=== PATIENT | male | born 1935 | race Caucasian/White ===

== ENCOUNTER 2017-10-02 00:30 | Inpatient (IN) | payer MEDICARE, OTHER ==
[~2017-10-02 00:30] MED LIST: ALPR0.25 PO; AMLO5TAB2 PO; HALO0.5T PO; HYDR12.57 PO; NAPR500T2 PO; ZOLP10TA3 PO
[2017-10-02] MEDS ORDERED: IOHEXOL 350 MG/ML 10 ML VIAL (for RAD DIAG) IVCONTRAST ONE (00:41)
[2017-10-02] MEDS ORDERED: MAGNESIUM HYDROXIDE SUSP 30 ML CUP PO PRN (01:15)
[2017-10-02] MEDS ORDERED: LACTULOSE SYRUP 20 GM/30 ML CUP PO PRN (01:15)
[2017-10-02] MEDS ORDERED: ONDANSETRON ODT 4 MG TAB PO PRN (01:15)
[2017-10-02] MEDS ORDERED: BISACODYL 10 MG SUPP RECTAL PRN (01:15)
[2017-10-02] MEDS ORDERED: SODIUM CHLORIDE 0.9% FLUSH 10 ML FLUSH IV FLUSH PRN (01:15)
[2017-10-02] MEDS ORDERED: SENNOSIDES 8.6 MG TAB PO PRN (01:15)
[2017-10-02] MEDS ORDERED: NALOXONE HCL 0.4 MG/ML AMP IV PUSH PRN (01:15)
[2017-10-02] MEDS ORDERED: TRIMETHOBENZAMIDE INJ 200 MG/2 ML VIAL IM PRN (01:15)
[2017-10-02] MEDS ORDERED: ACETAMINOPHEN 325 MG TAB PO PRN (01:15)
[2017-10-02] MEDS: SODIUM CHLOR 0.9% 1000 ML INJ 1,000 ML IV SCH ×2 (01:43→15:23)
--- NOTE | 2017-10-02 03:19 | RADRPT ---
EXAM DATE/TIME: 10/02/2017 02:44 [place] COMPARISON: No previous studies available for comparison. INDICATIONS : Shortness of breath with elevated D-Dimer. IV CONTRAST: 70 cc Omnipaque 350 (iohexol) IV RADIATION DOSE: 8.96 CTDIvol (mGy) MEDICAL HISTORY : Dementia. Cardiovascular disease Hypertension. SURGICAL HISTORY : None. ENCOUNTER: Initial ACUITY: 1 day PAIN SCALE: 0/10 LOCATION: chest TECHNIQUE: Volumetric scanning of the chest was performed using a pulmonary embolism protocol MIP images were re constructed. Using automated exposure control and adjustment of the mA and/or kV according to patien t size, radiation dose was kept as low as reasonably achievable to obtain optimal diagnostic quality images. DICOM format image data is available electronically for review and comparison. Follow-up recommendations for detected pulmonary nodules are based at a minimum on nodule size and pa tient risk factors according to Fleischner Society Guidelines. FINDINGS: No filling defects to suggest pulmonary embolus. Dependent atelectasis in the lungs. Mild coronary ca lcifications. No pleural or pericardial effusion. No adenopathy. No acute findings in the upper abdom en. Mild scoliosis. CONCLUSION: 1. Negative for pulmonary embolus. Henrry Rossi MD on October 02, 2017 at 3:14 Board Certified Radiologist. This report was verified electronically.
[2017-10-02 03:55] VITALS: BP 153/83; PULSE 93; RESP 16; TEMP 97.7; O2SAT 98
[2017-10-02] MEDS: ALPRAZolam 0.25 MG TAB PO PRN (04:21)
[2017-10-02] MEDS: ENOXAPARIN SODIUM 40 MG/0.4 ML SYRINGE SQ SCH (04:22)
[2017-10-02 07:52] VITALS: BP 137/76; PULSE 95; RESP 18; TEMP 97.5; O2SAT 98
[2017-10-02] MEDS: amLODIPine BESYLATE 5 MG TAB PO SCH (08:39)
[2017-10-02] MEDS: SODIUM CHLORIDE 0.9% FLUSH 10 ML FLUSH IV FLUSH SCH ×2 (08:39→21:00)
[2017-10-02] MEDS: HALOPERIDOL 0.5 MG TAB PO SCH ×2 (08:39→20:30)
--- NOTE | 2017-10-02 08:51 | HHI.HP ---
HPI Service [facility] Primary Care Physician Tano Hewitt MD Admission Diagnosis Diagnoses: (1) Acute renal injury (2) Dementia (3) Hypertension (4) Urinary tract infection (5) Metabolic encephalopathy Chief Complaint: Altered mental status change Travel History International Travel<30 Days: No Contact w/Intl Traveler <30 Da: No Traveled to Known Affected Are: No History of Present Illness 82-year-old speaking man transfer to [facility] ED for evaluation of altered mental status change. Although patient is alert oriented, however it is difficult to obtain any history from him as patient is a poor history; therefore history is obtained from chart review below; "This is a 82-year-old male presents here for evaluation of generalized weakness and malodorous urine for the last few days. Family member at the bedside states that he has been doing okay and he does not have any medical problems but recently has been feeling weak and coughing and his urine started to smell bad. There is also subjective fever but he did not check his temperature at home. There is no nausea or vomiting or diarrhea. Patient has no complaints and keeps saying that "I feel good". Nephew at bedside states that his severe lesion is probably 94 but back in the 40s they did not used to have a certificate in [place] and he had to go to the doctor to be checked and be assigned a date." On admission, patient was afebrile with temperature of 98.2, pulse 86, respiratory rate 16, BP 142/66 and satting at 99% on room air. Chest x-ray did not reveal any cardiopulmonary disease and secondary to elevated d-dimer patient has CTA which was negative for PE. Patient has a slight bump on his BUN which on March 18, 2017 was 23 and is now 32. He also had abnormal UA for which she was started on IV antibiotic. Review of Systems ROS Limitations: Poor Historian Except as stated in HPI: all other systems reviewed are Neg Past Family Social History Past Medical History Anxiety: Yes Cardiovascular Problems: Yes High Cholesterol: Yes Hypertension: Yes Past Surgical History HERNIA REPAIR Reported Medications Keflex (Cephalexin) 500 Mg Cap 500 Mg PO Q12H 10 Days Reported Alprazolam 0.25 Mg Tab 0.25 Mg PO Q8H PRN Donepezil 5 Mg Tab 5 Mg PO HS Haloperidol 0.5 Mg Tab 0.5 Mg PO BID Trazodone (Trazodone HCl) 50 Mg Tab 50 Mg PO HS Amlodipine (Amlodipine Besylate) 5 Mg Tab 5 Mg PO DAILY Allergies: Coded Allergies: No Known Allergies (Unverified Allergy, Unknown, 10/02/17) Family History Due to patient's advanced age, family history not relevant for this case Social History Alcohol Use: No Tobacco Use: No Substance Use: Yes Physical Exam Vital Signs Vital Signs Date Time Temp Pulse Resp B/P (MAP) Pulse Ox O2 Delivery O2 Flow Rate FiO2 10/02/17 07:52 97.5 95 18 137/76 (96) 98 10/02/17 03:55 97.7 93 16 153/83 (106) 98 Physical Exam GENERAL: This is a well-nourished, well-developed patient, in no apparent distress. SKIN: No rashes, ecchymoses or lesions. Cool and dry. HEAD: Atraumatic. Normocephalic. No temporal or scalp tenderness. EYES: Pupils equal round and reactive. Extraocular motions intact. No scleral icterus. No injection or drainage. ENT: Nose without bleeding, purulent drainage or septal hematoma. Throat without erythema, tonsillar hypertrophy or exudate. Uvula midline. Airway patent. NECK: Trachea midline. No JVD or lymphadenopathy. Supple, nontender, no meningeal signs. CARDIOVASCULAR: Regular rate and rhythm without murmurs, gallops, or rubs. RESPIRATORY: Clear to auscultation. Breath sounds equal bilaterally. No wheezes , rales, or rhonchi. GASTROINTESTINAL: Abdomen soft, non-tender, nondistended. No hepato-splenomegaly , or palpable masses. No guarding. MUSCULOSKELETAL: Extremities without clubbing, cyanosis, or edema. No joint tenderness, effusion, or edema noted. No calf tenderness. Negative Homans sign bilaterally. NEUROLOGICAL: Awake and alert. Cranial nerves II through XII intact. Motor and sensory grossly within normal limits. Five out of 5 muscle strength in all muscle groups. Normal speech. Imaging Last Impressions CT Angiography 10/02/17 0000 Signed Impressions: Service Date/Time: Monday, October 02, 2017 02:44 - CONCLUSION: 1. Negative for pulmonary embolus. Henrry Rossi MD Septic Shock Reassessment Septic shock perfusion: reassessment completed Caprini VTE Risk Assessment Caprini VTE Risk Assessment: Mod/High Risk (score >= 2) Caprini Risk Assessment Model Point Value = 1 Point Value = 2 Point Value = 3 Point Value = 5 Age 41-60 Minor surgery BMI > 25 kg/m2 Swollen legs Varicose veins or History of unexplained or recurrent spontaneous Oral contraceptives or hormone replacement Sepsis (< 1 month) Serious lung disease, including pneumonia (< 1 month) Abnormal pulmonary function Acute myocardial infarction Congestive heart failure (< 1 month) History of inflammatory bowel disease Medical patient at bed rest Age 61-74 Arthroscopic surgery Major open surgery (> 45 min) Laparoscopic surgery (> 45 min) Malignancy Confined to bed (> 72 hours) Immobilizing plaster cast Central venous access Age >= 75 History of VTE Family history of VTE Factor V Leiden Prothrombin [id number] Lupus anticoagulant Anticardiolipin antibodies Elevated serum homocysteine Heparin-induced thrombocytopenia Other congenital or acquired thrombophilia Stroke (< 1 month) Elective arthroplasty Hip, pelvis, or leg fracture Acute spinal cord injury (< 1 month) Prophylaxis Regimen Total Risk Factor Score Risk Level Prophylaxis Regimen 0-1 Low Early ambulation 2 Moderate Order ONE of the following: *Sequential Compression Device (SCD) *Heparin 5000 units SQ BID 3-4 Higher Order ONE of the following medications: *Heparin 5000 units SQ TID *Enoxaparin/Lovenox 40 mg SQ daily (WT < 150 kg, CrCl > 30 mL/min) *Enoxaparin/Lovenox 30 mg SQ daily (WT < 150 kg, CrCl > 10-29 mL/min) *Enoxaparin/Lovenox 30 mg SQ BID (WT < 150 kg, CrCl > 30 mL/min) AND/OR *Sequential Compression Device (SCD) 5 or more Highest Order ONE of the following medications: *Heparin 5000 units SQ TID (Preferred with Epidurals) *Enoxaparin/Lovenox 40 mg SQ daily (WT < 150 kg, CrCl > 30 mL/min) *Enoxaparin/Lovenox 30 mg SQ daily (WT < 150 kg, CrCl > 10-29 mL/min) *Enoxaparin/Lovenox 30 mg SQ BID (WT < 150 kg, CrCl > 30 mL/min) AND *Sequential Compression Device (SCD) Assessment and Plan Problem List: (1) Metabolic encephalopathy ICD Code: G93.41 - Metabolic encephalopathy (2) Urinary tract infection ICD Code: N39.0 - Urinary tract infection, site not specified (3) Hypertension ICD Code: I10 - Essential (primary) hypertension (4) Acute renal injury ICD Code: N17.9 - Acute kidney failure, unspecified (5) Dementia ICD Code: F03.90 - Unspecified dementia without behavioral disturbance Assessment and Plan 82-year-old man with Metabolic encephalopathy Likely secondary to UTI versus other Chest x-ray noted and reviewed by me without any cardiopulmonary disease Check ammonia level CTA negative for PE Urinary tract infection Currently on Rocephin pending cultures report Acute renal injury BUN/creatinine 23/0.9 (03/18/17) and now on admission 32/1.20 Prerenal likely secondary to dehydration Gentle IV fluid hydration and monitor BUN and creatinine Normochromic normocytic anemia Likely of chronic disease and appears stable However will check Hemoccult Also check iron study along with ferritin and treat accordingly History of dementia behavior disturbances Currently on Haldol Not on Namenda Outpatient follow-up Hypertension Currently normotensive on Norvasc DVT prophylaxis: Bilateral SCDs Lester Reza MD October 02, 2017 08:51
[2017-10-02] MEDS ORDERED: RESP: ALBUTEROL 2.5 MG/IPRATROPIUM 0.5 MG NEB (PRN) NEB (10:00)
[2017-10-02 11:46] VITALS: BP 118/72; PULSE 90; RESP 18; TEMP 97.5; O2SAT 98
[2017-10-02 16:01] VITALS: BP 125/72; PULSE 88; RESP 18; TEMP 97.7; O2SAT 97
[2017-10-02 19:50] VITALS: BP 143/76; PULSE 89; RESP 18; TEMP 98; O2SAT 98
[2017-10-02] MEDS: cefTRIAXone INJ 1,000 MG in SODIUM CHLORIDE 0.9% INJ 100 ML IV SCH (20:30)
[2017-10-02 23:34] LABS: IRON (FE) 14 MCG/DL (65-175)
[2017-10-02 23:38] LABS: FERRITIN 116 NG/ML (26-388); TOTAL IRON BINDING CAPACITY 279 MCG/DL (250-450)
[2017-10-03 00:35] VITALS: BP 135/74; PULSE 84; RESP 16; TEMP 98.5; O2SAT 98
[2017-10-03 04:11] VITALS: BP 150/86; PULSE 89; RESP 16; TEMP 97.4; O2SAT 98
[2017-10-03] MEDS: ENOXAPARIN SODIUM 40 MG/0.4 ML SYRINGE SQ SCH (05:16)
[2017-10-03] MEDS: SODIUM CHLOR 0.9% 1000 ML INJ 1,000 ML IV SCH (05:16)
[2017-10-03] MEDS: ALPRAZolam 0.25 MG TAB PO PRN (06:10)
[2017-10-03 07:02] LABS: AUTOMATED NEUTROPHIL # 3.1 TH/MM3 (1.8-7.7); BASOPHIL % 0.7 % (0.0-2.0); EOSINOPHIL # 0.1 TH/MM3 (0-0.4); EOSINOPHIL % 1.9 % (0.0-4.0); HEMATOCRIT 38.5 % (39.0-51.0); LYMPH % 23.9 % (9.0-44.0); LYMPHOCYTE # 1.2 TH/MM3 (1.0-4.8); MEAN CELL VOLUME 95.3 FL (80.0-100.0); MEAN CORPUSCULAR HEMOGLOBIN 32.2 PG (27.0-34.0); MEAN CORPUSCULAR HGB CONC 33.8 % (32.0-36.0); MEAN PLATELET VOLUME 8.6 FL (7.0-11.0); MONO % 11.8 % (0.0-8.0); MONOCYTE # 0.6 TH/MM3 (0-0.9); NEUT % 61.7 % (16.0-70.0); PLATELET COUNT 200 TH/MM3 (150-450); RED BLOOD COUNT 4.03 MIL/MM3 (4.50-5.90); RED CELL DISTRIBUTION WIDTH 13.3 % (11.6-17.2)
[2017-10-03 07:31] LABS: BICARBONATE 24.8 MEQ/L (21.0-32.0); CALCIUM 9.2 MG/DL (8.5-10.1); CREATININE 0.64 MG/DL (0.60-1.30)
[2017-10-03 08:01] VITALS: BP 160/89; PULSE 85; RESP 18; TEMP 97.9; O2SAT 100
[2017-10-03] MEDS: SODIUM CHLORIDE 0.9% FLUSH 10 ML FLUSH IV FLUSH SCH ×2 (08:16→21:28)
[2017-10-03] MEDS: HALOPERIDOL 0.5 MG TAB PO SCH ×2 (08:19→21:28)
[2017-10-03] MEDS: amLODIPine BESYLATE 5 MG TAB PO SCH (08:19)
--- NOTE | 2017-10-03 09:38 | HHI.PR ---
Subjective Remarks No acute complaints today. Dehydration is improving. Confusion remains present. There is likely some degree of confusion at baseline but patient is reportedly decompensated compared to baseline. Objective Vital Signs Date Time Temp Pulse Resp B/P (MAP) Pulse Ox O2 Delivery O2 Flow Rate FiO2 10/03/17 08:01 97.9 85 18 160/89 (112) 100 10/03/17 04:11 97.4 89 16 150/86 (107) 98 10/03/17 00:35 98.5 84 16 135/74 (94) 98 10/02/17 19:50 98.0 89 18 143/76 (98) 98 10/02/17 16:01 97.7 88 18 125/72 (89) 97 10/02/17 11:46 97.5 90 18 118/72 (87) 98 I/O 10/02/17 10/02/17 10/02/17 10/03/17 10/03/17 10/03/17 07:00 15:00 23:00 07:00 15:00 23:00 Intake Total 480 ml Balance 480 ml Intake Oral 480 ml # Voids 8 1 Result Diagram: 10/03/17 0610 10/03/17 0610 Objective Remarks GENERAL: NAD, A&Ox1 HEAD: Normocephalic. NECK: Supple, trachea midline. No lymphadenopathy. EYES: No scleral icterus. No injection or drainage. CARDIOVASCULAR: Regular rate and rhythm without murmurs, gallops, or rubs. RESPIRATORY: Breath sounds equal bilaterally. No accessory muscle use. GASTROINTESTINAL: Abdomen soft, non-tender, nondistended. MUSCULOSKELETAL: No cyanosis, or edema. SKIN: Warm and dry. NEURO: No focal neurological deficitis. Generalized weakness. A/P Problem List: (1) Encephalopathy ICD Code: G93.40 - Encephalopathy, unspecified (2) Dementia ICD Code: F03.90 - Unspecified dementia without behavioral disturbance (3) Urinary tract infection ICD Code: N39.0 - Urinary tract infection, site not specified (4) Hypertension ICD Code: I10 - Essential (primary) hypertension (5) Metabolic encephalopathy ICD Code: G93.41 - Metabolic encephalopathy Assessment and Plan 82-year-old man admitted secondary to weakness and confusion Metabolic encephalopathy secondary to UTI Continue to treat urinary tract infection Ammonia levels within normal limits Negative imaging Urinary tract infection Continue Rocephin Follow cultures Acute renal injury Improving Follow renal function Avoid nephrotoxins Discontinue IV hydration ion and monitor BUN and creatinine Normochromic normocytic anemia Resolved Iron level is slightly low Iron supplementation started Stool studies still pending Follow as an outpatient History of dementia behavior disturbances Continue Haldol Hypertension Continue Norvasc DVT prophylaxis Bilateral SCDs Discharge planning Patient is likely in need of a care home facility at time of discharge Terry Romero MD October 03, 2017 09:38
[2017-10-03] MEDS ORDERED: FERROUS SULFATE 325 MG (65 MG ELEMENTAL IRON) TAB PO ONE (09:45)
[2017-10-03 12:25] VITALS: BP 132/70; PULSE 82; RESP 18; TEMP 97.4; O2SAT 99
[2017-10-03 20:00] VITALS: BP 134/60; PULSE 105; RESP 16; TEMP 98; O2SAT 96
[2017-10-03] MEDS: cefTRIAXone INJ 1,000 MG in SODIUM CHLORIDE 0.9% INJ 100 ML IV SCH (21:25)
[2017-10-04] VITALS: BP 138/63; PULSE 73; RESP 16; TEMP 97.6; O2SAT 99
[2017-10-04 04:00] VITALS: BP 124/69; PULSE 79; RESP 14; TEMP 97.6; O2SAT 97
[2017-10-04] MEDS: ENOXAPARIN SODIUM 40 MG/0.4 ML SYRINGE SQ SCH (06:14)
[2017-10-04 08:00] VITALS: BP 140/77; PULSE 86; RESP 19; TEMP 97.2; O2SAT 98
[2017-10-04] MEDS: FERROUS SULFATE 325 MG (65 MG ELEMENTAL IRON) TAB PO SCH (08:08)
[2017-10-04] MEDS: HALOPERIDOL 0.5 MG TAB PO SCH ×2 (08:08→22:40)
[2017-10-04] MEDS: SODIUM CHLORIDE 0.9% FLUSH 10 ML FLUSH IV FLUSH SCH ×2 (08:08→22:40)
[2017-10-04] MEDS: amLODIPine BESYLATE 5 MG TAB PO SCH (08:08)
[2017-10-04 08:49] LABS: AUTOMATED NEUTROPHIL # 2.9 TH/MM3 (1.8-7.7); BASOPHIL # 0.1 TH/MM3 (0-0.2); BASOPHIL % 1.2 % (0.0-2.0); EOSINOPHIL # 0.1 TH/MM3 (0-0.4); EOSINOPHIL % 1.8 % (0.0-4.0); HEMATOCRIT 41.1 % (39.0-51.0); HEMOGLOBIN 13.7 GM/DL (13.0-17.0); LYMPH % 24.9 % (9.0-44.0); LYMPHOCYTE # 1.1 TH/MM3 (1.0-4.8); MEAN CORPUSCULAR HEMOGLOBIN 32.1 PG (27.0-34.0); MEAN CORPUSCULAR HGB CONC 33.4 % (32.0-36.0); MEAN PLATELET VOLUME 8.3 FL (7.0-11.0); MONO % 9.4 % (0.0-8.0); MONOCYTE # 0.4 TH/MM3 (0-0.9); NEUT % 62.7 % (16.0-70.0); PLATELET COUNT 224 TH/MM3 (150-450); RED BLOOD COUNT 4.28 MIL/MM3 (4.50-5.90); RED CELL DISTRIBUTION WIDTH 13.2 % (11.6-17.2); WHITE BLOOD COUNT 4.6 TH/MM3 (4.0-11.0)
[2017-10-04 09:15] LABS: ALBUMIN 3.5 GM/DL (3.4-5.0); AST (GOT) 17 U/L (15-37); BICARBONATE 25.1 MEQ/L (21.0-32.0); BLOOD UREA NITROGEN 24 MG/DL (7-18); CALCIUM 9.5 MG/DL (8.5-10.1); CHLORIDE 102 MEQ/L (98-107); CREATININE 0.96 MG/DL (0.60-1.30); GLOMERULAR FILTRATION RATE 75 ML/MIN (>89); GLUCOSE,RANDOM 89 MG/DL (74-106); SODIUM (NA) 138 MEQ/L (136-145)
[2017-10-04 09:16] LABS: ALT (GPT) 22 U/L (12-78)
[2017-10-04 09:18] LABS: ALKALINE PHOSPHATASE 77 U/L (45-117); TOTAL BILIRUBIN ADULT 0.3 MG/DL (0.2-1.0); TOTAL PROTEIN 8.2 GM/DL (6.4-8.2)
[2017-10-04 12:00] VITALS: BP 147/86; PULSE 91; RESP 19; TEMP 98; O2SAT 98
--- NOTE | 2017-10-04 13:14 | HHI.PR ---
Subjective Remarks Patient seen this morning using sales person over the phone. Patient has no complaints. Says he is feeling all right. Denies any pain. Denies any dysuria. Disoriented but pleasant. Objective Vital Signs Date Time Temp Pulse Resp B/P (MAP) Pulse Ox O2 Delivery O2 Flow Rate FiO2 10/04/17 12:00 98.0 91 19 147/86 (106) 98 10/04/17 08:00 97.2 86 19 140/77 (98) 98 10/04/17 04:00 97.6 79 14 124/69 (87) 97 10/04/17 00:00 97.6 73 16 138/63 (88) 99 10/03/17 20:00 98.0 105 16 134/60 (84) 96 I/O 10/03/17 10/03/17 10/03/17 10/04/17 10/04/17 10/04/17 06:59 14:59 22:59 06:59 14:59 22:59 Intake Total 450 ml 120 ml Balance 450 ml 120 ml Intake Oral 120 ml IV Total 450 ml # Voids 2 1 2 # Bowel Movements 1 Result Diagram: 10/04/1713 10/04/1713 Objective Remarks GENERAL: Patient sitting up in bed. Appears comfortable. Disoriented. SKIN: Warm and dry. HEAD: Normocephalic. EYES: No scleral icterus. No injection or drainage. NECK: Supple, trachea midline. No JVD. CARDIOVASCULAR: Regular rate and rhythm without murmurs, gallops, or rubs. RESPIRATORY: Breath sounds equal bilaterally. No accessory muscle use. GASTROINTESTINAL: Abdomen soft, non-tender, nondistended. MUSCULOSKELETAL: No cyanosis, or edema. BACK: Nontender without obvious deformity. No CVA tenderness. A/P Assessment and Plan 82-year-old man admitted secondary to weakness and confusion //Metabolic encephalopathy secondary to UTI Continue to treat urinary tract infection Ammonia levels within normal limits Negative imaging = Patient chronic dementia. Will call family for further information //Urinary tract infection Continue Rocephin Follow cultures = Pansensitive Proteus. Continue Cipro with stop date of 10/12 //Acute renal injury Improving Follow renal function Avoid nephrotoxins Discontinue IV hydration ion and monitor BUN and creatinine = Resolved //Normochromic normocytic anemia Resolved Iron level is slightly low Iron supplementation started Stool studies still pending Follow as an outpatient = Stable. Follow-up with primary care as outpatient. //History of dementia behavior disturbances Continue Haldol //Hypertension Continue Norvasc //DVT prophylaxis Bilateral SCDs Discharge Planning Patient is likely in need of a fdc facility at time of discharge Carloz Churchill MD October 04, 2017 13:14
[2017-10-04 16:00] VITALS: BP 122/70; PULSE 84; RESP 20; TEMP 98.5; O2SAT 95
[2017-10-04 20:00] VITALS: BP 122/70; PULSE 87; RESP 18; TEMP 98; O2SAT 94
[2017-10-04] MEDS: CIPROFLOXACIN 250 MG TAB PO SCH (22:40)
[2017-10-05] VITALS: BP 138/73; PULSE 85; RESP 18; TEMP 97.1; O2SAT 96
[2017-10-05 04:00] VITALS: BP 132/74; PULSE 82; RESP 18; TEMP 97.8; O2SAT 96
[2017-10-05] MEDS: ENOXAPARIN SODIUM 40 MG/0.4 ML SYRINGE SQ SCH (06:09)
[2017-10-05 08:34] VITALS: BP 137/72; PULSE 83; RESP 20; TEMP 97.5; O2SAT 96
[2017-10-05] MEDS: amLODIPine BESYLATE 5 MG TAB PO SCH (08:53)
[2017-10-05] MEDS: SODIUM CHLORIDE 0.9% FLUSH 10 ML FLUSH IV FLUSH SCH (08:53)
[2017-10-05] MEDS: HALOPERIDOL 0.5 MG TAB PO SCH (08:53)
[2017-10-05] MEDS: CIPROFLOXACIN 250 MG TAB PO SCH (08:53)
[2017-10-05] MEDS: FERROUS SULFATE 325 MG (65 MG ELEMENTAL IRON) TAB PO SCH (08:53)
--- NOTE | 2017-10-05 11:46 | HHI.PR ---
Subjective Remarks Patient seen using metal machine setter over the phone. Says he is feeling all right. Denies any chest pain shortness of breath. Denies nausea or vomiting. Denies burning with urination. Objective Vital Signs Date Time Temp Pulse Resp B/P (MAP) Pulse Ox O2 Delivery O2 Flow Rate FiO2 10/05/17 08:34 97.5 83 20 137/72 (93) 96 10/05/17 04:00 97.8 82 18 132/74 (93) 96 10/05/17 00:00 97.1 85 18 138/73 (94) 96 10/04/17 20:00 98.0 87 18 122/70 (87) 94 10/04/17 16:00 98.5 84 20 122/70 (87) 95 10/04/17 12:00 98.0 91 19 147/86 (106) 98 I/O 10/04/17 10/04/17 10/04/17 10/05/17 10/05/17 10/05/17 07:00 15:00 23:00 07:00 15:00 23:00 Intake Total 120 ml 750 ml Output Total 400 ml Balance 120 ml 350 ml Intake Oral 120 ml 750 ml Output Urine Total 400 ml # Voids 2 3 # Bowel Movements 0 Result Diagram: 10/04/1781210/04/17812 Objective Remarks GENERAL: Patient sitting up in bed. Appears comfortable. Disoriented. Pleasant. Exam unchanged from yesterday. SKIN: Warm and dry. HEAD: Normocephalic. EYES: No scleral icterus. No injection or drainage. NECK: Supple, trachea midline. No JVD. CARDIOVASCULAR: Regular rate and rhythm without murmurs, gallops, or rubs. RESPIRATORY: Breath sounds equal bilaterally. No accessory muscle use. GASTROINTESTINAL: Abdomen soft, non-tender, nondistended. MUSCULOSKELETAL: No cyanosis, or edema. BACK: Nontender without obvious deformity. No CVA tenderness. A/P Assessment and Plan 82-year-old man admitted secondary to weakness and confusion //Metabolic encephalopathy secondary to UTI Continue to treat urinary tract infection Ammonia levels within normal limits Negative imaging = Patient chronic dementia. Will call family for further information. No answer. //Urinary tract infection Continue Rocephin Follow cultures = Pansensitive Proteus. Continue Cipro with stop date of 10/12 //Acute renal injury Improving Follow renal function Avoid nephrotoxins Discontinue IV hydration ion and monitor BUN and creatinine = Resolved //Normochromic normocytic anemia Resolved Iron level is slightly low Iron supplementation started Stool studies still pending Follow as an outpatient = Stable. Follow-up with primary care as outpatient. //History of dementia behavior disturbances Continue Haldol //Hypertension Continue Norvasc //DVT prophylaxis Bilateral SCDs Discharge Planning Discharge to SNF. Carloz Churchill MD October 05, 2017 11:46
[2017-10-05] MEDS ORDERED: ALPR0.25 PO (11:49)
[2017-10-05] MEDS ORDERED: CIPR250T52 PO (11:49)
--- NOTE | 2017-10-05 11:51 | HHI.DS ---
Discharge Summary Admission Date October 02, 2017 at 00:40 Discharge Date: October 05, 2017 Admitting Diagnosis (1) Metabolic encephalopathy ICD Code: G93.41 - Metabolic encephalopathy (2) Urinary tract infection ICD Code: N39.0 - Urinary tract infection, site not specified (3) Hypertension ICD Code: I10 - Essential (primary) hypertension (4) Acute renal injury ICD Code: N17.9 - Acute kidney failure, unspecified (5) Dementia ICD Code: F03.90 - Unspecified dementia without behavioral disturbance Procedures No invasive procedures. Brief History - From Admission 82-year-old speaking man transfer to [facility] ED for evaluation of altered mental status change. Although patient is alert oriented, however it is difficult to obtain any history from him as patient is a poor history; therefore history is obtained from chart review below; "This is a 82-year-old male presents here for evaluation of generalized weakness and malodorous urine for the last few days. Family member at the bedside states that he has been doing okay and he does not have any medical problems but recently has been feeling weak and coughing and his urine started to smell bad. There is also subjective fever but he did not check his temperature at home. There is no nausea or vomiting or diarrhea. Patient has no complaints and keeps saying that "I feel good". Nephew at bedside states that his severe lesion is probably 94 but back in the 40s they did not used to have a certificate in [place] and he had to go to the doctor to be checked and be assigned a date." On admission, patient was afebrile with temperature of 98.2, pulse 86, respiratory rate 16, BP 142/66 and satting at 99% on room air. Chest x-ray did not reveal any cardiopulmonary disease and secondary to elevated d-dimer patient has CTA which was negative for PE. Patient has a slight bump on his BUN which on March 18, 2017 was 23 and is now 32. He also had abnormal UA for which she was started on IV antibiotic. CBC/BMP: 10/04/17 0813 10/04/17 0813 Significant Findings Laboratory Tests Test 10/03/17 06:10 10/04/17 08:13 Red Blood Count 4.03 MIL/MM3 (4.50-5.90) 4.28 MIL/MM3 (4.50-5.90) Hematocrit 38.5 % (39.0-51.0) Monocytes (%) (Auto) 11.8 % (0.0-8.0) 9.4 % (0.0-8.0) Blood Urea Nitrogen 24 MG/DL (7-18) Estimat Glomerular Filtration Rate 75 ML/MIN (>89) Imaging Last Impressions CT Angiography 10/02/17 0000 Signed Impressions: Service Date/Time: Monday, October 02, 2017 02:44 - CONCLUSION: 1. Negative for pulmonary embolus. Henrry Rossi MD Hospital Course 82-year-old man admitted secondary to weakness and confusion //Metabolic encephalopathy secondary to UTI Continue to treat urinary tract infection Ammonia levels within normal limits Negative imaging = Patient chronic dementia. Will call family for further information. No answer. //Urinary tract infection Continue Rocephin Follow cultures = Pansensitive Proteus. Continue Cipro with stop date of 10/12 //Acute renal injury Improving Follow renal function Avoid nephrotoxins Discontinue IV hydration ion and monitor BUN and creatinine = Resolved //Normochromic normocytic anemia Resolved Iron level is slightly low Iron supplementation started Stool studies still pending Follow as an outpatient = Stable. Follow-up with primary care as outpatient. //History of dementia behavior disturbances Continue Haldol //Hypertension Continue Norvasc //DVT prophylaxis Bilateral SCDs Discharge Planning Discharge to SNF. Pt Condition on Discharge: Good Discharge Disposition: Discharge to SNF Discharge Time: > 30 minutes Discharge Instructions DIET: Follow Instructions for: Heart Healthy Diet Activities you can perform: Regular-No Restrictions Follow up Referrals: PCP Follow-up - 1 Week with Tano Hewitt MD New Medications: Ciprofloxacin (Cipro) 250 Mg Tab 250 MG PO Q12HR for Infection for 7 Days, TAB Continued Medications: Alprazolam (Alprazolam) 0.25 Mg Tab 0.25 MG PO Q8H PRN for ANXIETY, #20 TAB 0 Refills (This prescription has been renewed) Amlodipine (Amlodipine) 5 Mg Tab 5 MG PO DAILY for Blood Pressure Management, #30 TAB 0 Refills Haloperidol (Haloperidol) 0.5 Mg Tab 0.5 MG PO BID, TAB 0 Refills Zolpidem (Zolpidem) 10 Mg Tab 10 MG PO HS PRN for INSOMNIA, TAB 0 Refills Discontinued Medications: Hydrochlorothiazide (Hydrochlorothiazide) 12.5 Mg Cap 12 MG PO DAILY, #30 CAP 0 Refills Naproxen (Naproxen) 500 Mg Tab 500 MG PO BID, #60 TAB 0 Refills Carloz Churchill MD October 05, 2017 11:51
[2017-10-05 11:59] VITALS: BP 136/66; PULSE 92; RESP 20; TEMP 97.5; O2SAT 99
--- NOTE | 2017-10-05 15:32 | HHI.FF ---
Face to Face Verification Diagnosis: (1) Dementia (2) Urinary tract infection (3) Hypertension Physical Therapy Order: Evaluate and Treat Home Health Nursing Order: Nursing assessment with vital signs Home Health Aide Order: To Assist In: Bathing and personal care Clinical Data Management Manager Order: To Provide: Long range planning I have seen patient Zbigniew Short on 10/05/17. My clinical findings support the need for the requested home health care services because: Limited ability to care for self I certify that my clinical findings support that this patient is homebound because: Unsteady gait/balance Carloz Churchill MD October 05, 2017 15:32
[2017-10-05 16:31] VITALS: BP 139/75; PULSE 91; RESP 20; TEMP 97.8; O2SAT 99
== END 2017-10-05 18:10 | disposition home or self-care (01) | DRG 682 ==
LOC: NEDDLT 00:30 → OBSVTOIN 00:40 → NEPFCDU 00:40 → N05B 10-03 14:47
PROVIDERS: ADMIT Family Medicine; ATTEND Family Medicine
DX: N17.9 Acute kidney failure, unspecified (principal); G93.41 Metabolic encephalopathy; F03.91 Unspecified dementia, unspecified severity, with behavioral disturbance; N39.0 Urinary tract infection, site not specified; E86.0 Dehydration; I10 Essential (primary) hypertension; D64.9 Anemia, unspecified; E78.00 Pure hypercholesterolemia, unspecified; F41.9 Anxiety disorder, unspecified
CPT/HCPCS: 71046; 71275; 80048; 80053; 81001; 82140; 82272; 82728; 83540; 83550; 83605; 83690; 83880; 84484; 85025; 85379; 87077; 87086; 87186; 93005; 96374; G8987-GO; G8987-GP; G8988-GO; G8988-GP; J0696; J1650; J7030; Q9967

== ENCOUNTER 2017-10-23 22:25 | Observation (INO) | payer MEDICARE, MEDICAID ==
[~2017-10-23 22:25] MED LIST changes: +CIPR250T52 PO; -HYDR12.57 PO; -NAPR500T2 PO
[2017-10-23 22:48] VITALS: BP 131/73; PULSE 95; RESP 20; TEMP 96.3; O2SAT 97
[2017-10-24] MEDS ORDERED: NALOXONE HCL 0.4 MG/ML AMP IV PUSH PRN (00:30)
[2017-10-24] MEDS ORDERED: LORazepam 2 MG/ML VIAL IV PUSH PRN (00:30)
[2017-10-24] MEDS ORDERED: SODIUM CHLORIDE 0.9% FLUSH 10 ML FLUSH IV FLUSH PRN (00:30)
[2017-10-24] MEDS ORDERED: ACETAMINOPHEN 325 MG TAB PO PRN (00:30)
[2017-10-24] MEDS: SODIUM CHLOR 0.9% 1000 ML INJ 1,000 ML IV SCH ×2 (01:06→13:39)
[2017-10-24] MEDS: HEPARIN SODIUM - SQ 10,000 UNITS/ML VIAL SQ SCH ×3 (06:04→21:34)
[2017-10-24 06:41] LABS: AUTOMATED NEUTROPHIL # 4.9 TH/MM3 (1.8-7.7); BASOPHIL # 0.1 TH/MM3 (0-0.2); BASOPHIL % 0.9 % (0.0-2.0); EOSINOPHIL % 0.7 % (0.0-4.0); HEMATOCRIT 32.5 % (39.0-51.0); HEMOGLOBIN 10.7 GM/DL (13.0-17.0); LYMPH % 13.5 % (9.0-44.0); LYMPHOCYTE # 0.9 TH/MM3 (1.0-4.8); MEAN CELL VOLUME 95.9 FL (80.0-100.0); MEAN CORPUSCULAR HEMOGLOBIN 31.7 PG (27.0-34.0); MEAN PLATELET VOLUME 7.7 FL (7.0-11.0); MONO % 9.9 % (0.0-8.0); MONOCYTE # 0.6 TH/MM3 (0-0.9); PLATELET COUNT 312 TH/MM3 (150-450); RED BLOOD COUNT 3.39 MIL/MM3 (4.50-5.90); RED CELL DISTRIBUTION WIDTH 12.7 % (11.6-17.2); WHITE BLOOD COUNT 6.5 TH/MM3 (4.0-11.0)
[2017-10-24 06:54] LABS: CALCIUM 8.5 MG/DL (8.5-10.1)
[2017-10-24 06:55] LABS: BICARBONATE 27.3 MEQ/L (21.0-32.0)
[2017-10-24 06:58] LABS: CREATININE 0.75 MG/DL (0.60-1.30)
[2017-10-24 07:29] VITALS: BP 125/74; PULSE 90; RESP 20; TEMP 96.8; O2SAT 97
[2017-10-24] MEDS: cefTRIAXone INJ 1,000 MG in SODIUM CHLORIDE 0.9% INJ 100 ML IV SCH (09:00)
[2017-10-24] MEDS: SODIUM CHLORIDE 0.9% FLUSH 10 ML FLUSH IV FLUSH SCH ×2 (09:02→21:00)
[2017-10-24 11:13] VITALS: BP 128/70; PULSE 86; RESP 20; TEMP 96.6; O2SAT 97
--- NOTE | 2017-10-24 12:04 | HHI.HP ---
HPI Service [facility] Primary Care Physician Unknown Admission Diagnosis Diagnoses: (1) Dementia (2) Encephalopathy (3) Urinary tract infection (4) Acute renal injury Chief Complaint: Weakness, agitation Travel History International Travel<30 Days: No Contact w/Intl Traveler <30 Da: No Traveled to Known Affected Are: No History of Present Illness 82-year-old male with a medical history significant for dementia, hypertension presents brought into the hospital by family due to worsening fatigue and dark urine. Patient has dementia. I was able to speak time through an diplomatic interpreter/translator. He is unable to contribute much to the history. I discussed the case with is niece/caregiver. Reports that over the past few weeks he has been getting weaker. He has been more agitated also. She is concerned that it is becoming more difficult for her to care for him in the home setting. There is no reports of fever or chills. Workup in the emergency room grossly unremarkable except for probable UTI. Review of Systems ROS Limitations: Poor Historian Constitutional: DENIES: Fever, Chills Cardiovascular: DENIES: Chest pain Gastrointestinal: DENIES: Abdominal pain, Nausea, Vomiting Psychiatric: COMPLAINS OF: Agitation Past Family Social History Past Medical History Dementia Hypertension Past Surgical History Hernia repair Reported Medications Reported Meds & Active Scripts Active Reported Amlodipine (Amlodipine Besylate) 5 Mg Tab 5 Mg PO DAILY Allergies: Coded Allergies: No Known Allergies (Verified Allergy, Unknown, 10/23/17) Family History Reviewed and found to be noncontributory. Social History No alcohol, or tobacco use. Physical Exam Vital Signs Vital Signs Date Time Temp Pulse Resp B/P (MAP) Pulse Ox O2 Delivery O2 Flow Rate FiO2 10/24/17 11:13 96.6 86 20 128/70 (89) 97 10/24/17 07:29 96.8 90 20 125/74 (91) 97 10/23/17 22:48 96.3 95 20 131/73 (92) 97 Physical Exam GENERAL: Demented patient, in no apparent distress. CARDIOVASCULAR: Normal rate and regular rhythm without murmurs, gallops, or rubs. RESPIRATORY: Good respiratory efforts. Breath sounds equal and clear to auscultation bilaterally. GASTROINTESTINAL: Abdomen soft, non-tender, non-distended. Normal active bowel sounds MUSCULOSKELETAL: Extremities without cyanosis, or edema. NEURO: Alert & Oriented to self only. Moves all ext x4 PSYCH: Appear calm Laboratory Laboratory Tests Test 10/24/17 06:22 White Blood Count 6.5 Red Blood Count 3.39 Hemoglobin 10.7 Hematocrit 32.5 Mean Corpuscular Volume 95.9 Mean Corpuscular Hemoglobin 31.7 Mean Corpuscular Hemoglobin Concent 33.0 Red Cell Distribution Width 12.7 Platelet Count 312 Mean Platelet Volume 7.7 Neutrophils (%) (Auto) 75.0 Lymphocytes (%) (Auto) 13.5 Monocytes (%) (Auto) 9.9 Eosinophils (%) (Auto) 0.7 Basophils (%) (Auto) 0.9 Neutrophils # (Auto) 4.9 Lymphocytes # (Auto) 0.9 Monocytes # (Auto) 0.6 Eosinophils # (Auto) 0.0 Basophils # (Auto) 0.1 CBC Comment DIFF FINAL Differential Comment Blood Urea Nitrogen 20 Creatinine 0.75 Random Glucose 97 Calcium Level 8.5 Sodium Level 138 Potassium Level 4.4 Chloride Level 105 Carbon Dioxide Level 27.3 Anion Gap 6 Estimat Glomerular Filtration Rate 99 Result Diagram: 10/24/1762110/24/17621 Caprini VTE Risk Assessment Caprini VTE Risk Assessment: Mod/High Risk (score >= 2) Caprini Risk Assessment Model Point Value = 1 Point Value = 2 Point Value = 3 Point Value = 5 Age 41-60 Minor surgery BMI > 25 kg/m2 Swollen legs Varicose veins or History of unexplained or recurrent spontaneous Oral contraceptives or hormone replacement Sepsis (< 1 month) Serious lung disease, including pneumonia (< 1 month) Abnormal pulmonary function Acute myocardial infarction Congestive heart failure (< 1 month) History of inflammatory bowel disease Medical patient at bed rest Age 61-74 Arthroscopic surgery Major open surgery (> 45 min) Laparoscopic surgery (> 45 min) Malignancy Confined to bed (> 72 hours) Immobilizing plaster cast Central venous access Age >= 75 History of VTE Family history of VTE Factor V Leiden Prothrombin [id number] Lupus anticoagulant Anticardiolipin antibodies Elevated serum homocysteine Heparin-induced thrombocytopenia Other congenital or acquired thrombophilia Stroke (< 1 month) Elective arthroplasty Hip, pelvis, or leg fracture Acute spinal cord injury (< 1 month) Prophylaxis Regimen Total Risk Factor Score Risk Level Prophylaxis Regimen 0-1 Low Early ambulation 2 Moderate Order ONE of the following: *Sequential Compression Device (SCD) *Heparin 5000 units SQ BID 3-4 Higher Order ONE of the following medications: *Heparin 5000 units SQ TID *Enoxaparin/Lovenox 40 mg SQ daily (WT < 150 kg, CrCl > 30 mL/min) *Enoxaparin/Lovenox 30 mg SQ daily (WT < 150 kg, CrCl > 10-29 mL/min) *Enoxaparin/Lovenox 30 mg SQ BID (WT < 150 kg, CrCl > 30 mL/min) AND/OR *Sequential Compression Device (SCD) 5 or more Highest Order ONE of the following medications: *Heparin 5000 units SQ TID (Preferred with Epidurals) *Enoxaparin/Lovenox 40 mg SQ daily (WT < 150 kg, CrCl > 30 mL/min) *Enoxaparin/Lovenox 30 mg SQ daily (WT < 150 kg, CrCl > 10-29 mL/min) *Enoxaparin/Lovenox 30 mg SQ BID (WT < 150 kg, CrCl > 30 mL/min) AND *Sequential Compression Device (SCD) Assessment and Plan Problem List: (1) Urinary tract infection ICD Code: N39.0 - Urinary tract infection, site not specified Plan: Continue Rocephin. Follow urine cultures. IV fluids. (2) Dementia with behavioral disturbance ICD Code: F03.91 - Unspecified dementia with behavioral disturbance Plan: Patient required Ativan in the emergency room. He appears calm at this time. Continue to monitor and redirect. Keep Ativan as needed. (3) Debility ICD Code: R53.81 - Other malaise Plan: PT to evaluate and treat (4) Hypertension ICD Code: I10 - Essential (primary) hypertension Plan: Continue amlodipine Assessment and Plan Admitted for observation. Discussed with the patient's caregiver. Will plan to discharge with home health Mayra Wood MD Oct 24, 2017 12:04
[2017-10-24 15:41] VITALS: BP 134/72; PULSE 82; RESP 20; TEMP 96.8; O2SAT 97
[2017-10-24] MEDS ORDERED: SENNOSIDES 8.6 MG TAB PO PRN (18:00)
[2017-10-24] MEDS ORDERED: LACTULOSE SYRUP 20 GM/30 ML CUP PO PRN (18:00)
[2017-10-24] MEDS ORDERED: MAGNESIUM HYDROXIDE SUSP 30 ML CUP PO PRN (18:00)
[2017-10-24] MEDS ORDERED: BISACODYL 10 MG SUPP RECTAL PRN (18:00)
[2017-10-24 21:04] VITALS: BP 160/100; PULSE 106; RESP 20; TEMP 96.9; O2SAT 93
[2017-10-24 21:29] VITALS: BP 154/78; PULSE 99; RESP 20; TEMP 96.7; O2SAT 96
[2017-10-24] MEDS: DOCUSATE SODIUM 50 MG/SENNA 8.6 MG TAB PO SCH (21:33)
[2017-10-25 00:36] VITALS: BP 153/74; PULSE 94; RESP 20; TEMP 96.8; O2SAT 98
[2017-10-25] MEDS: SODIUM CHLOR 0.9% 1000 ML INJ 1,000 ML IV SCH ×2 (06:10→16:19)
[2017-10-25] MEDS: HEPARIN SODIUM - SQ 10,000 UNITS/ML VIAL SQ SCH ×3 (06:11→23:09)
[2017-10-25 08:00] VITALS: BP 155/95; PULSE 96; RESP 16; TEMP 98.5; O2SAT 95
[2017-10-25] MEDS: DOCUSATE SODIUM 50 MG/SENNA 8.6 MG TAB PO SCH ×2 (08:11→21:11)
[2017-10-25] MEDS: cefTRIAXone INJ 1,000 MG in SODIUM CHLORIDE 0.9% INJ 100 ML IV SCH (08:21)
[2017-10-25] MEDS ORDERED: LORA-392 PO (10:20)
--- NOTE | 2017-10-25 10:20 | HHI.PR ---
Subjective Remarks Patient is more alert. Used an design checker today. Still very demented but able to say he is feeling okay. He denies any pain. He is eating. He is calm. Objective Vitals Vital Signs Date Time Temp Pulse Resp B/P (MAP) Pulse Ox O2 Delivery O2 Flow Rate FiO2 10/25/17 08:00 98.5 96 16 155/95 (115) 95 10/25/17 00:36 96.8 94 20 153/74 (100) 98 10/24/17 21:29 96.7 99 20 154/78 (103) 96 10/24/17 21:04 96.9 106 20 160/100 (120) 93 10/24/17 15:41 96.8 82 20 134/72 (92) 97 10/24/17 11:13 96.6 86 20 128/70 (89) 97 I/O 10/24/17 10/24/17 10/24/17 10/25/17 10/25/17 10/25/17 07:00 15:00 23:00 07:00 15:00 23:00 Intake Total 487 ml 804 ml 600 ml Output Total 400 ml 1100 ml Balance 87 ml -296 ml 600 ml Intake Oral 0 ml 804 ml IV Total 487 ml 600 ml Output Urine Total 400 ml 1100 ml # Voids 4 3 # Bowel Movements 0 Result Diagram: 10/24/17 0622 10/24/17 0622 Objective Remarks GENERAL: Demented patient, in no apparent distress. CARDIOVASCULAR: Normal rate and regular rhythm without murmurs, gallops, or rubs. RESPIRATORY: Good respiratory efforts. Breath sounds equal and clear to auscultation bilaterally. GASTROINTESTINAL: Abdomen soft, non-tender, non-distended. Normal active bowel sounds MUSCULOSKELETAL: Extremities without cyanosis, or edema. NEURO: Alert & Oriented to self only. Moves all ext x4 PSYCH: Appear calm A/P Problem List: (1) Abnormal urinalysis ICD Code: R82.90 - Unspecified abnormal findings in urine Plan: Patient empirically treated with Rocephin. However urine culture is negative. Antibiotics discontinued. (2) Dementia with behavioral disturbance ICD Code: F03.91 - Unspecified dementia with behavioral disturbance Plan: Patient required Ativan in the emergency room. He has been very calm since then. Discussed with family member to work on redirecting. He was given a low dose Ativan for home to be used as needed only. (3) Debility ICD Code: R53.81 - Other malaise Plan: PT evaluated the patient. He was discharged with home physical therapy. (4) Hypertension ICD Code: I10 - Essential (primary) hypertension Plan: Continue amlodipine Discharge Planning Discharge home with home health care in good condition Activity: As tolerated. Use assistance Diet: Heart healthy Meds: Per med rec Follow-up: With PCP as scheduled. Mayra Wood MD Oct 25, 2017 10:20
--- NOTE | 2017-10-25 10:21 | HHI.DCPOC ---
Discharge Care Plan Diagnosis: (1) Dementia with behavioral disturbance (2) Hypertension (3) Debility Goals to Promote Your Health * To prevent worsening of your condition and complications * To maintain your health at the optimal level Directions to Meet Your Goals Take your medications as prescribed Follow your dietary instruction Follow activity as directed Keep your appointments as scheduled Take your immunizations and boosters as scheduled If your symptoms worsen call your PCP, if no PCP go to Urgent Care Center or Emergency Room Smoking is Dangerous to Your Health. Avoid second hand smoke Call the 24-hour hour crisis hotline for domestic abuse at Mayra Wood MD Oct 25, 2017 10:21
--- NOTE | 2017-10-25 10:22 | HHI.FF ---
Face to Face Verification Diagnosis: (1) Dementia with behavioral disturbance (2) Hypertension (3) Debility Physical Therapy Order: Evaluate and Treat, Improve ambulation, Strength and gait training Home Health Nursing Order: Medical education Medication education-adverse effect Nursing assessment with vital signs I have seen patient Zbigniew Short on 10/25/17. My clinical findings support the need for the requested home health care services because: Limited ability to care for self Need for psychosocial assistance Impaired cognition/judgement I certify that my clinical findings support that this patient is homebound because: Impaired cognitive ability/safety Need for psychosocial assistance Mayra Wood MD Oct 25, 2017 10:22
[2017-10-25 16:46] VITALS: BP 155/95; PULSE 107; RESP 20; TEMP 98.8; O2SAT 97
[2017-10-25 20:43] VITALS: BP 165/90; PULSE 106; RESP 20; TEMP 96.9; O2SAT 98
[2017-10-25] MEDS: SODIUM CHLORIDE 0.9% FLUSH 10 ML FLUSH IV FLUSH SCH (21:11)
[2017-10-26 00:04] VITALS: BP 146/75; PULSE 99; RESP 20; TEMP 97.1; O2SAT 95
[2017-10-26] MEDS: HEPARIN SODIUM - SQ 10,000 UNITS/ML VIAL SQ SCH ×2 (05:28→15:42)
[2017-10-26] MEDS: SODIUM CHLOR 0.9% 1000 ML INJ 1,000 ML IV SCH (05:39)
[2017-10-26 07:52] VITALS: BP 128/71; PULSE 84; RESP 18; TEMP 97.9
[2017-10-26] MEDS: SODIUM CHLORIDE 0.9% FLUSH 10 ML FLUSH IV FLUSH SCH (09:23)
[2017-10-26] MEDS: cefTRIAXone INJ 1,000 MG in SODIUM CHLORIDE 0.9% INJ 100 ML IV SCH (09:24)
[2017-10-26] MEDS: DOCUSATE SODIUM 50 MG/SENNA 8.6 MG TAB PO SCH (09:25)
[2017-10-26 11:30] VITALS: BP 132/76; PULSE 83; RESP 18; TEMP 97.4; O2SAT 97
[2017-10-26 15:30] VITALS: BP 124/78; PULSE 89; RESP 18; TEMP 97.9; O2SAT 98
--- NOTE | 2017-10-26 15:53 | HHI.PR ---
Subjective Remarks Pt sitting on recliner, denies any pain, nausea or vomiting. demented Discussed w RN, pt will be going to SNF in a few hours. No concerns Objective Vitals Vital Signs Date Time Temp Pulse Resp B/P (MAP) Pulse Ox O2 Delivery O2 Flow Rate FiO2 10/26/17 15:30 97.9 89 18 124/78 (93) 98 10/26/17 11:30 97.4 83 18 132/76 (94) 97 10/26/17 07:52 97.9 84 18 128/71 (90) 10/26/17 00:04 97.1 99 20 146/75 (98) 95 10/25/17 20:43 96.9 106 20 165/90 (115) 98 10/25/17 16:46 98.8 107 20 155/95 (115) 97 I/O 10/25/17 10/25/17 10/25/17 10/26/17 10/26/17 10/26/17 07:00 15:00 23:00 07:00 15:00 23:00 Intake Total 600 ml Balance 600 ml IV Total 600 ml # Voids 3 1 2 Result Diagram: 10/24/1762110/24/17621 Objective Remarks GENERAL: Demented patient CARDIOVASCULAR: Normal rate and regular rhythm without murmurs, gallops, or rubs. RESPIRATORY: Good respiratory efforts. Breath sounds equal and clear to auscultation bilaterally. GASTROINTESTINAL: Abdomen soft, non-tender, non-distended. Normal active bowel sounds MUSCULOSKELETAL: sitting on recliner, moves extremities A/P Problem List: (1) Abnormal urinalysis ICD Code: R82.90 - Unspecified abnormal findings in urine (2) Dementia with behavioral disturbance ICD Code: F03.91 - Unspecified dementia with behavioral disturbance (3) Debility ICD Code: R53.81 - Other malaise (4) Hypertension ICD Code: I10 - Essential (primary) hypertension Assessment and Plan (1) Abnormal urinalysis Patient empirically treated with Rocephin. However urine culture were negative. Antibiotics discontinued. (2) Dementia with behavioral disturbance Patient required Ativan in the emergency room. He has been very calm since then. Discussed with family member to work on redirecting. However family insisted for him to go to SNF as they cannot take care of him. (3) Debility PT evaluated the patient. Family requesting for him to go to rehab (4) Hypertension Continue amlodipine Discharge Planning Discharge to SNF. d.c order was placed on 10/25/17 Activity: As tolerated. Use assistance Diet: Heart healthy Meds: Per med rec Follow-up: With PCP as scheduled. Tonya Jasso MD Oct 26, 2017 15:53
== END 2017-10-26 17:53 ==
LOC: PHEDDLT 22:25 → INTOOBSV 22:26 → UNDOADMOB 22:26 → UNDOADMIN 22:26 → PH3A 22:26 → PHEDA 22:26 → UNDODISOB 10-26 17:53
PROVIDERS: ADMIT Hospitalist; ATTEND Hospitalist
DX: F03.91 Unspecified dementia, unspecified severity, with behavioral disturbance (principal); G93.40 Encephalopathy, unspecified; R82.90 Unspecified abnormal findings in urine; I10 Essential (primary) hypertension; R53.1 Weakness; R53.81 Other malaise; Z79.899 Other long term (current) drug therapy
CPT/HCPCS: 71045; 80048; 80053; 80307; 81001; 82140; 82550; 83605; 85025; 85610; 85730; 87040; 87086; 93005; 96365; 96368; 96372; 96374; 96375; 96376; 97161; 97530; 99285; G0378; G8987; G8988; J0696; J1644; J2060; J2543; J3370; J7030; J7050